=== PATIENT | female | born 1970 | race Caucasian/White ===

== ENCOUNTER → 2017-05-19 | Outpatient (CLI) | payer OTHER ==
--- NOTE | 2017-05-19 17:03 | PCVCIMAG ---
APPROVED REPORT Study performed: 05/19/2017 15:40:13 EXAM: Comprehensive 2D, Doppler, and color-flow Echocardiogram Status: routine Indications Palpitations, SOA. 2D Dimensions IVSd: 9.10 (7-11mm)LVOT Diam: 17.52 (18-24mm) LVDd: 42.37 mm LVPWs: 25.33 mm PWd: 7.94 (7-11mm)Ascending Ao: 27.68 (22-36mm) LVDs: 33.23 (25-40mm) Left Atrium: 34.51 (27-40mm) LV Single Plane 4CH: 63.89 % LV Single Plane 2CH: 54.63 %Ford's LVEF: 59.26 % Biplane EF: 60.9 % Volumes Left Atrial Volume (Systole) Single Plane 4CH: 24.72 mLSingle Plane 2CH: 31.16 mL LA ESV Index: 18.00 mL/m2 Aortic Valve AoV Peak Aguila.: 1.23 m/s AO Peak Gr.: 6.04 mmHgLVOT Max P.47 mmHg LVOT Max V: 0.93 m/s ABIMAEL Vmax: 1.82 cm2 Pulmonary Valve PV Peak Gr.: 1.43 mmHg Pulmonary Vein P Vein S: 0.65 m/sP Vein A: 0.34 m/s P Vein D: 0.45 m/sP Vein A Dur.: 96.9 msec P Vein S/D Ratio: 1.44 Tricuspid Valve TR Peak Aguila.: 2.23 m/s TR Peak Gr.: 19.90 mmHg Left Ventricle The left ventricle is normal size. There is normal LV segmental wall motion. There is normal left ventricular wall thickness. Left ventricular systolic function is normal. The left ventricular ejection fraction is within the normal range. LVEF is 55-60%. The left ventricular diastolic function is normal. Right Ventricle The right ventricle is normal size. The right ventricular systolic function is normal. Atria The left atrium size is normal. The right atrium size is normal. Aortic Valve The aortic valve is normal in structure. No aortic regurgitation is present. There is no aortic valvular stenosis. Mitral Valve The mitral valve is normal in structure. There is no mitral valve regurgitation noted. No evidence of mitral valve stenosis. Tricuspid Valve The tricuspid valve is normal in structure. Trace tricuspid regurgitation. Pulmonary artery pressures is 27mmhg. Pulmonic Valve The pulmonary valve is normal in structure. There is no pulmonic valvular regurgitation. Great Vessels The aortic root is normal in size. IVC is normal in size and collapses with >50% inspiration Pericardium There is no pericardial effusion. <Conclusion> Normal echocardiogram. The left ventricle is normal size. There is normal left ventricular wall thickness. Left ventricular systolic function is normal. The left ventricular diastolic function is normal. The right ventricle is normal size. The left atrium size is normal. The aortic valve is normal in structure. The mitral valve is normal in structure. Trace tricuspid regurgitation. Pulmonary artery pressures is 27mmhg.
--- NOTE | 2017-05-19 17:07 | PCVCIMAG ---
APPROVED REPORT Exam: Stress Echocardiogram Indication: Palpitations, SOA, Patient Location: Echo lab Stress Nurse: Arelis Newell RN Status: routine HR: 81 bpm Procedure The patient underwent an Exercise Stress Test using the Girish Protocol. Blood pressure, heart rate, and EKG were monitored. An Echocardiogram was performed by radiation control technician in four stages in quad fashion. At peak stress, four selected images were obtained and placed side by side with resting images for comparison. Stress Test Details Stress Test: Exercise stress testing was performed using a Girish protocol. HR Resting HR: 81 bpmMax Heart Rate (APMHR): 173 bpm Max HR Achieved: 179 bpmTarget HR (85% APMHR): 147 bpm % of APMHR: 103 HR response to stress: Normal HR response to stress BP Resting BP: 110/70 mmHg Max BP: 160/80 mmHg ECG Resting ECG: Sinus Rhythm Stress ECG: Sinus Rhythm, nonspecific ST-T abnormalities ST Change: Non-ischemic Clinical Reason for Termination: Maximal effort Exercise duration: 8 min 31 sec Highest Stage Achieved: Stage 2: 2.5 mph at 12% grade. Exercise capacity: 10.10 METs Overall Exercise Capacity for Age: Normal Pre-Stress Echo The resting Echocardiogram showed normal left ventricular contractility with an estimated Ejection Fraction of about 55-60%. Normal wall motion in all segments on baseline images. Post-Stress Echo The stress Echocardiogram showed normal left ventricular contractility with an estimated Ejection Fraction of about 65-70%. Normal augmentation of wall motion in all segments on post stress images. Clinical Normal augmentation of myocardial wall segments using a 17 segment model. Conclusion Clinical Response: Non-ischemic Exercise Capacity: Average Stress ECG Response: Non-ischemic Stress Echo Images: Non-ischemic
== END | disposition home or self-care (01) ==
LOC: PCVCIMAG 15:11
PROVIDERS: ATTEND Internal Medicine Cardiovascular Disease
DX: I07.1 Rheumatic tricuspid insufficiency (principal); R07.9 Chest pain, unspecified; K21.9 Gastro-esophageal reflux disease without esophagitis; Z79.899 Other long term (current) drug therapy
CPT/HCPCS: 93306; 93351; G0463